=== PATIENT | male | born 1990 | race Caucasian/White ===

== ENCOUNTER 2021-07-18 23:43 | Emergency (ER) | payer MEDICAID ==
[~2021-07-18] VITALS: Ht 185.4 cm; Wt 77.1 kg
[2021-07-18 23:48] VITALS: BP_SYST 128
--- NOTE | 2021-07-18 23:52 | NUR ---
DR AHDDAD AT PT BEDSIDE
[2021-07-19] MEDS ORDERED: ONDANSETRON HCL 4 MG/2 ML VIAL IVP ONE
--- NOTE | 2021-07-19 00:06 | NUR ---
PT WAS AT [facility] WAS AT [facility] 5 HOURS AGO HAD APX 3 SHOTS OF VODKA AND SMOKED A BLUNT. PT STATED THAT HE FELT SICK AFTER EATING APX 20 MIN AFTER EATING SOME CHICKEN AND CAESER SALAD. PT CALLED [employer] [facility] FROM HOTEL ROOM. PT IS AOX4 BUT HIS FACIAL EXPRESS ARE SLUGISH. PT IN BED WITH RAILS UP AND BED LOCKED AND LOWERED. WILL CONTINUE TO MONITOR
[2021-07-19 00:30] LABS: BASOPHILS # (AUTO) 0.1 K/uL (0.0-0.2); BASOPHILS % (AUTO) 0.7 % (0.0-2.0); EOSINOPHILS # (AUTO) 0.1 K/uL (0.0-0.4); HEMATOCRIT 51.2 % (36-54); LYMPHOCYTES # (AUTO) 0.4 K/uL (1.0-5.5); LYMPHOCYTES % (AUTO) 3.5 % (20.5-51.5); MEAN CORPUSCULAR HEMOGLOBIN 29 pg (27-31); MEAN CORPUSCULAR HGB CONC 33 % (32-36); MEAN CORPUSCULAR VOLUME 86 fL (79.0-98.0); MONOCYTES # (AUTO) 0.6 K/uL (0.0-1.0); MONOCYTES % (AUTO) 5.2 % (1.7-9.3); NEUTROPHILS # (AUTO) 10.7 K/uL (1.8-7.7); NEUTROPHILS % (AUTO) 89.6 % (40.0-70.0); PLATELET COUNT (AUTO) 297 K/uL (130-430); RED BLOOD CELL COUNT(AUTO) 5.97 MIL/uL (4.2-6.2); RED CELL DISTRIBUTION WIDTH 14.6 % (9.0-15.0); WHITE BLOOD COUNT (AUTO) 11.9 K/uL (4.8-10.8)
[2021-07-19 00:47] LABS: CALCIUM 9.1 mg/dL (8.4-11.0); CREATININE 0.85 mg/dL (0.55-1.30); POTASSIUM 3.6 mmol/L (3.5-5.1)
[2021-07-19 01:00] LABS: ALBUMIN 4.1 g/dL (3.4-4.8); TOTAL BILIRUBIN 0.3 mg/dL (0.0-1.0)
--- NOTE | 2021-07-19 01:00 | NUR ---
PT STATED HE HAS LOST APX 40 LBS IN 4 MONTH
[2021-07-19] MEDS ORDERED: METOCLOPRAMIDE HCL 10 MG/2 ML VIAL IVP ONE (01:15)
[2021-07-19] MEDS ORDERED: DIPHENHYDRAMINE INJ 50 MG/ML VIAL IVP ONE (01:15)
[2021-07-19] MEDS ORDERED: NACL 0.9% 1,000 ML IV ONE ×2 (01:30)
--- NOTE | 2021-07-19 02:24 | NUR ---
PATIENT WITNESSED INDUCING VOMITING. PATIENT HAS FINGERS IN MOUTH STATES "IT MAKES HIM FEEL BETTER FOR A SECOND." DR HADDAD NOTIFIED. AT BEDSIDE
[2021-07-19 02:43] LABS: ALCOHOL, BLOOD 20 mg/dL (<10); LIPASE 229 U/L (73-393)
[2021-07-19] MEDS ORDERED: LORazepam 2 MG/ML VIAL IVP ONE (02:45)
--- NOTE | 2021-07-19 03:22 | NUR ---
0300 IVF FINISHED D/C. 0322 ATIVAN 1MG IVP GIVEN ORDERED.
[2021-07-19 04:34] LABS: BILIRUBIN,URINE NEGATIVE (NEGATIVE); BLOOD, URINE NEGATIVE (NEGATIVE); CLARITY/URINE CLEAR (CLEAR); COLOR,URINE YELLOW (YELLOW); GLUCOSE,URINE NEGATIVE (NEGATIVE); KETONES,URINE 2+ (NEGATIVE); LEUKOCYTE ESTERASE ,URINE NEGATIVE (NEGATIVE); NITRITE, URINE NEGATIVE (NEGATIVE); PH,URINE 7.5 (5.0-8.0); PROTEIN URINE NEGATIVE (NEGATIVE); UROBILINOGEN,URINE 0.2 (0.2-1.0)
[2021-07-19 04:55] LABS: CANNABINOID, URINE POSITIVE (NEG <=50)
[2021-07-19 04:56] LABS: BARBITURATE, URINE NEGATIVE (NEG <=200); BENZODIAZEPINE, URINE NEGATIVE (NEG <=150); COCAINE, URINE NEGATIVE (NEG <=150); METHAMPHETAMINES SCREEN,URINE NEGATIVE (NEG <=500); OPIATE, URINE NEGATIVE (NEG <=100); PHENCYCLIDINE SCREEN,URINE NEGATIVE (NEG <=25); UR TRICYCLIC ANTIDEPRESSANTS NEGATIVE (NEG <=300); URINE AMPHETAMINE NEGATIVE (NEG <=500); URINE METHADONE NEGATIVE (NEG <=200); URINE OXYCODONE SCREEN NEGATIVE (NEG <=100); URINE PROPOXYPHENE SCREEN NEGATIVE (NEG <=300)
[2021-07-19] MEDS ORDERED: ONDA-8 TL (05:51)
--- NOTE | 2021-07-19 06:14 | NUR ---
PT RESTING IN BED COMFORTABLY, BED LOWERED AND LOCKED, RAILS UP. PT DENIES ANY NAUSEA AND IS AT A PAIN 2/10. PT VITAL SIGNS ARE STABLE, NO ACUTE CHANGES. WILL CONTINUE TO MONITOR
--- NOTE | 2021-07-19 06:19 | NUR ---
Patient given written and verbal discharge instructions and verbalizes understanding. ER DR BOO ELDRIDGE discussed with patient the results and treatment provided. Patient in stable condition. ID arm band removed. IV catheter removed intact and dressing applied, no active bleeding. Rx of ZOFRAN given. Patient educated on pain management and to follow up with PMD. Pain Scale . Opportunity for questions provided and answered. Medication side effect fact sheet provided.
[2021-07-19 06:30] VITALS: BP_SYST 133
== END 2021-07-19 06:30 | disposition home or self-care (01) ==
LOC: SED 23:43
DX: R11.10 Vomiting, unspecified (principal); R10.9 Unspecified abdominal pain; F41.9 Anxiety disorder, unspecified; Z79.899 Other long term (current) drug therapy
CPT/HCPCS: 36415; 80053; 80307; 81003; 82550; 83690; 85025; 96361; 96374; 96375; 99285; G0482; J1200; J2060; J2405; J2765; J7030